=== PATIENT | male | born 1995 | race Caucasian/White ===

== ENCOUNTER → 2016-09-12 | Outpatient (CLI) | payer OTHER ==
--- NOTE | 2016-09-12 19:08 | DX ---
Right tibia and fibula, 2 views. History: Pain. Fall skiing. Findings: Normal mineralization and alignment. Possible subtle oblique nondisplaced fracture at the m id to distal diaphysis seen on the lateral view of the tibia.. No significant joint narrowing, periar ticular erosion, periarticular spurring. Impression: Possible subtle nondisplaced fracture of the mid to distal diaphysis of the tibia. Results called and discussed with Dr. Michelle Hogan at 09/12/2016 19:05 results
== END ==
LOC: BMCIMAGING 18:43
PROVIDERS: ATTEND Family Medicine
DX: S89.91XA Unspecified injury of right lower leg, initial encounter (principal)

== ENCOUNTER → 2018-04-23 | Outpatient (CLI) | payer OTHER | LOC: BMCIMAGING 14:54 | PROVIDERS: ATTEND Family Medicine | DX: S69.92XA Unspecified injury of left wrist, hand and finger(s), initial encounter (principal) ==